=== PATIENT | male | born 1990 | race Caucasian/White ===

== ENCOUNTER 2020-03-16 18:00 | Emergency (ER) | payer OTHER, SELFPAY ==
[2020-03-16 19:12] VITALS: BP 155/67; PULSE 101; RESP 18; TEMP 38; O2SAT 96; BMI 50.8
--- NOTE | 2020-03-16 19:25 | XR_ITS ---
EXAMINATION: XR CHEST CLINICAL INFORMATION: Cough COMPARISON: None TECHNIQUE: Frontal portable view of the chest was obtained. 7:30 PM. Projection is apical lordotic. FINDINGS: No significant abnormality is noted involving the heart, lungs, mediastinum, bony thorax or soft tissues. XR/XR chest 1V IMPRESSION: Unremarkable examination.
--- NOTE | 2020-03-16 20:06 | ED_ITS ---
HPI - URI/Sore Throat General Chief Complaint: Upper Respiratory Symptoms Stated Complaint: sob,cough Time Seen by Provider: 03/16/20 19:25 Source: patient Mode of arrival: ambulatory Limitations: no limitations History of Present Illness HPI Narrative: Patient presents to ED for coughing, wheezing, body aches, and night sweats since yesterday. Patient states no one else at home having similar symptoms. Patient states mild shortness of breath with cough. Related Data Previous Rx's Medication Instructions Recorded albuterol sulfate 2 puff INHALATION Q6H PRN #18 g 03/16/20 ibuprofen 400 mg PO Q6H PRN #28 tab 03/16/20 prednisone 40 mg PO DAILY #10 tab 03/16/20 Allergies Allergy/AdvReac Type Severity Reaction Status Date / Time shrimp [SHRIMP] Allergy Severe THROAT Unverified 01/27/20 15:56 SWELLING, RASH Review of Systems Constitutional: Constitutional: Reports as per HPI, Reports no additional constitutional complaints, Reports body ache(s), Reports chills and Reports fatigue Eyes: Eyes: Reports as per HPI and Reports no additional eye complaints ENT: Reports system reviewed and no additional complaints, except as documented and Reports as per HPI Cardiovascular: Cardiovascular: Reports as per HPI, Reports no additional cardiovascular complaints, Denies chest pain, Denies chest pain at rest, Denies chest pain with activity, Denies dyspnea, Denies dyspnea on exertion, Denies orthopnea and Denies paroxysmal nocturnal dyspnea Respiratory: Respiratory: Reports cough, Denies dyspnea, Denies dyspnea on exertion and Reports wheezing Gastrointestinal: Gastrointestinal: Reports as per HPI, Reports no additional gastrointestinal complaints, Denies abdominal pain, Denies belching and Denies melena Musculoskeletal: Musculoskeletal: Reports no additional musculoskeletal complaints and Reports as per HPI Neurologic: Reports system reviewed and no additional complaints, except as documented and Reports as per HPI Psychiatric: Psychiatric: Reports no additional psychiatric complaints and Reports as per HPI Endocrine: Endocrine: Reports fatigue Allergic/Immunologic: Allergic/Immunologic: Reports wheezing PMFSH Past Medical History Medical History (Updated 03/16/20 @ 20:14 by THOMAS Cisneros) Asthma Carpal tunnel syndrome Pinched nerve Social History Social History Advance Directives: No Physical Exam Vital Signs: Vital Signs: Last Vital Signs Temp 100.4 F 03/16/20 19:12 Pulse 101 H 03/16/20 19:12 Resp 18 03/16/20 19:12 BP 155/67 H 03/16/20 19:12 Pulse Ox 96 03/16/20 19:12 Body Mass Index 50.8 Const: General: cooperative, healthy appearing, comfortable, no acute distress, well developed, alert and awake Orientation/consciousness: patient oriented x3 HENMT: Head: Yes normal to inspection and Yes No palpable skull fracture present Eyes: General: appearance normal, both eyes and all related structures Visual Law: normal visual law by confrontation Neck: Neck: Yes full ROM, Yes no lymphadenopathy, Yes no meningeal signs and Yes trachea midline Chest: Chest palpation & inspection: normal inspection of the chest, normal palpation of entire chest wall and no localized rib tenderness Resp: Effort & Inspection: normal respiratory effort, able to speak in complete sentences, normal respiratory pattern, no audible wheezes, no cough, no grunting, not labored, no nasal flaring, no paradoxical thoraco-abdom movements and no pursed lip breathing Auscultation: wheezes ( Mild) expiratory wheezes Cardio: Jugular venous distension: no JVD Heart sounds: S1 normal heart sound present and S2 normal heart sound present GI: Inspection: Yes normal to inspection and No abdominal wall ecchymosis Palpation (GI): Soft to palpation, not firm, nontender, no guarding and not rigid : General: No CVA tenderness and Yes no CVA tenderness Back/Spine/Pelvis: Back: no CVA tenderness, No CVA tenderness and No back tenderness Skin: General skin exam: no rashes or lesions noted Neuro: General: patient oriented x3, gait normal, no meningeal signs and CN's II-XI intact bilaterally Cranial nerves: Yes CN's II-XII intact bilaterally Extrem: General: Yes normal to inspection and Yes full ROM Psych: Appearance: grossly normal, well kempt and not disheveled Course Course Course Narrative: history physical exam indicate viral syndrome. URI. Reevaluation(s) Reevaluation #1: Patient sent for chest x-ray and will be given Tylenol and oral prednisone. patient is swabbed for COVID-19 virus. Patient will be discharged with albuterol inhaler, prednisone, and motrin. patient is not toxic appearing. Time: 20:12 MDM - URI/Sore Throat MDM Narrative Medical decision making narrative: Viral syndrome. Mild asthma exacerbation Discharge Plan Discharge Clinical Impression: Upper respiratory infection, Asthma Patient Disposition: Home, Self-Care Instructions: Asthma (ED), Upper Respiratory Infection (ED) Additional Instructions: return to the ED for any chest pain, shortness of breath, weakness, intractable fever/chills, coughing up blood, swelling of lower extremities, calf pain, or any other concerning symptoms. recommend 14 days self-isolation if COVID test come back positive Prescriptions: New prednisone 20 mg tablet 40 mg PO DAILY Qty: 10 RF: 0 ibuprofen 400 mg tablet 400 mg PO Q6H PRN (Reason: pain) Qty: 28 RF: 0 albuterol sulfate 90 mcg/actuation HFA aerosol inhaler 2 puff inhalation Q6H PRN (Reason: asthma) Qty: 18 RF: 0 Referrals: Laura Tinajero MD [Primary Care Provider] - 2 days ( viral syndrome. COVID testing pending) Stand Alone Forms: Work/School Release Interventions: ED Discharge Assessment Last Done: 03/16/20 20:45 Discharge Date/Time: 03/16/20 20:48 Print Language: Norwegian
[2020-03-16] MEDS: Acetaminophen 325 MG TABLET 650 MG PO (20:29)
[2020-03-16] MEDS: predniSONE 20 MG TABLET 60 MG PO (20:30)
== END 2020-03-16 20:48 | disposition home or self-care (01) ==
PROVIDERS: Physician Assistant; Emergency Provider Internal Medicine; PCP Internal Medicine
DX: J06.9 Acute upper respiratory infection, unspecified (principal); R05 Cough; J45.909 Unspecified asthma, uncomplicated; Z20.828 Contact with and (suspected) exposure to other viral communicable diseases
CPT/HCPCS: 71045; 99283; U0003

== ENCOUNTER 2020-05-10 06:29 | Outpatient (REF) | payer OTHER, SELFPAY ==
[2020-05-10 08:08] LABS: TSH reflex Free T4 1.07 mIU/mL (0.32-4.0)
[2020-05-11 06:58] LABS: Triiodothyronine T3 Free 3.8 pg/mL (2.3-4.2)
== END 2020-05-10 06:30 | disposition home or self-care (01) ==
LOC: HO.LAB 06:29
PROVIDERS: Visit Provider Internal Medicine
DX: E05.90 Thyrotoxicosis, unspecified without thyrotoxic crisis or storm (principal); G56.02 Carpal tunnel syndrome, left upper limb; I10 Essential (primary) hypertension
CPT/HCPCS: 84443; 84481

== ENCOUNTER → 2020-06-14 08:41 | Outpatient (BNVA) | payer OTHER, SELFPAY | PROVIDERS: PCP Internal Medicine; Visit Provider Orthopaedic Surgery | DX: G56.02 Carpal tunnel syndrome, left upper limb (principal); G56.01 Carpal tunnel syndrome, right upper limb | CPT/HCPCS: 99202 ==

== ENCOUNTER 2020-06-29 04:23 | Emergency (ER) | payer OTHER, SELFPAY ==
[2020-06-29 04:34] VITALS: BP 108/71; PULSE 83; RESP 18; TEMP 36.5; O2SAT 99; BMI 49.2
--- NOTE | 2020-06-29 04:46 | PC.NURSE ---
Covid swab obtained and sent.
[2020-06-29 05:01] LABS: COVID-19 Test Positive (Negative)
--- NOTE | 2020-06-29 06:37 | ED_ITS ---
HPI - URI/Sore Throat General Chief Complaint: Upper Respiratory Symptoms Stated Complaint: Covid Symptoms Time Seen by Provider: 06/29/20 06:37 Source: patient Mode of arrival: ambulatory Limitations: no limitations History of Present Illness MD elicited complaint: cough, sore throat and rhinorrhea Pertinent past history: asthma Onset (ago): day(s) (2) Consistency: constant Severity: mild Description of mucous: clear Able to tolerate fluids by mouth: Yes Exacerbating factors: nothing Relieving factors: nothing Associated symptoms: chills, myalgias, headache, sore throat and cough Treatments prior to arrival: none Related Data Previous Rx's Medication Instructions Recorded albuterol sulfate 2 puff INHALATION Q6H PRN #18 g 03/16/20 ibuprofen 400 mg PO Q6H PRN #28 tab 03/16/20 prednisone 40 mg PO DAILY #10 tab 03/16/20 Allergies Allergy/AdvReac Type Severity Reaction Status Date / Time shrimp [SHRIMP] Allergy Severe THROAT Verified 06/29/20 04:40 SWELLING, RASH Review of Systems Review of Systems: Constitutional : no Fever, positive Chills, positive fatigue, positive Malaise ENT/Mouth : positive sore throat, positive runny nose Eyes: No Discharge Cardiovascular : No Chest Pain, No SOB Respiratory : pos Cough, No Sputum Gastrointestinal : No Nausea, No Vomiting, No Diarrhea Genitourinary : No Dysuria, No Urinary Frequency Musculoskeletal : positive Myalgia Skin : No rash Neuro : No Headache PMFSH Past Medical History Attestation statement: The following information was validated with the patient. Medical History Asthma Bronchitis Carpal tunnel syndrome Hypertension Pinched nerve Family History Family History (Updated 06/14/20 @ 08:51 by JAMAL Garcia) Mother No problems noted. Father No problems noted. 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 Oriented X3. No acute distress. Eyes: Pupils equal, round and reactive to light. ENT: Pharynx normal. Neck: Normal inspection. Neck supple. CVS: Normal heart rate and rhythm. Pulses normal. Respiratory: No respiratory distress. Breath sounds normal. Abdomen: Soft and nontender. Skin: Skin warm and dry. Normal skin color. Normal skin turgor. Extremities: No lower extremity edema. No calf ttp Neuro: Oriented X 3. No motor deficit. No sensory deficit. MDM - URI/Sore Throat MDM Narrative Medical decision making narrative: 29 yo male no hypoxia, clear lungs, here with viral syndrome, tolerating PO + COVID Lab Data Labs: Lab Results 06/29/20 Range/Units 04:39 COVID-19 ([facility]) Positive A (Negative) COVID-19 Clin Com See Note Discharge Plan Discharge Clinical Impression: COVID-19 Patient Disposition: Home, Self-Care Instructions: COVID-19 (Coronavirus Disease 2019) (ED) Additional Instructions: return to ED for any worsening symptoms or concerns Prescriptions: No Action prednisone 20 mg tablet 40 mg PO DAILY Qty: 10 RF: 0 ibuprofen 400 mg tablet 400 mg PO Q6H PRN (Reason: pain) Qty: 28 RF: 0 albuterol sulfate 90 mcg/actuation HFA aerosol inhaler 2 puff inhalation Q6H PRN (Reason: asthma) Qty: 18 RF: 0
== END 2020-06-29 07:10 | disposition home or self-care (01) ==
PROVIDERS: Emergency Medicine Emergency Medical Services; Emergency Provider Emergency Medicine; PCP Internal Medicine
DX: U07.1 COVID-19 (principal); J45.909 Unspecified asthma, uncomplicated; I10 Essential (primary) hypertension
CPT/HCPCS: 36415; 87635; 99282; 99283

== ENCOUNTER 2020-11-16 16:01 | Emergency (ER) | payer OTHER, SELFPAY ==
[2020-11-16 16:08] VITALS: BP 118/76; PULSE 91; RESP 16; TEMP 37.1; O2SAT 96; BMI 51.6
[2020-11-16] MEDS: Fluorescein Sodium STRIP 1 STRIP EYE-LEFT (17:03)
[2020-11-16] MEDS: Tetracaine HCl/PF 0.5% Oph Sol 4 ML DROPS 1 DROP EYE-LEFT (17:03)
--- NOTE | 2020-11-16 17:30 | ED_ITS ---
HPI - Eye Problem General Chief complaint: Eye Problems Stated complaint: EYE PAIN Time Seen by Provider: 11/16/20 16:26 History of Present Illness HPI Narrative: patient complains of right eye irritation and foreign body sensation for 2 days after using a pressurized air hose at work that blew some material into his eye yesterday, discomfort is mild there is no photophobia no discharge no vision changes no vision loss Related Data Previous Rx's Medication Instructions Recorded albuterol sulfate 90 mcg/actuation 2 puff INHALATION Q6H PRN #18 g 03/16/20 aerosol inhaler ibuprofen 400 mg tablet 400 mg PO Q6H PRN #28 tab 03/16/20 prednisone 20 mg tablet 40 mg PO DAILY #10 tab 03/16/20 erythromycin 5 mg/gram (0.5 %) eye 0.5 inch OPHTHALMIC (EYE) TID 3 11/16/20 ointment Days #3.5 g Allergies Allergy/AdvReac Type Severity Reaction Status Date / Time shrimp [SHRIMP] Allergy Severe THROAT Verified 11/16/20 16:10 SWELLING, RASH Review of Systems Review of Systems: Positive for right eye foreign body sensation negatives are in no fever no chills no headache no vision loss no blurriness no discharge no photophobia no skin rashes Yes all other systems are reviewed and are negative [facility] Past Medical History Source: nursing notes reviewed Medical History Asthma Bronchitis Carpal tunnel syndrome Hypertension Pinched nerve Family History Family History (Updated 06/14/20 @ 08:51 by Jo Pablo Snow) Mother No problems noted. Father No problems noted. 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 Physical Exam Vital Signs: Vital Signs: Last Vital Signs Temp 98.7 F 11/16/20 16:08 Pulse 91 11/16/20 16:08 Resp 16 11/16/20 16:08 BP 118/76 11/16/20 16:08 Pulse Ox 96 11/16/20 16:08 Body Mass Index 51.6 General appearance no acute distress Head is normocephalic atraumatic Eye exam I rolled back the upper lid of the right eye as well as the lower lid and there was no foreign body visualized, pupils equal round reactive to light, extraocular motions are intact, no foreign body was visualized on the corneal surface, fluorescein dye did not show any uptake, visual acuity was 2025 bilaterally Respiratory no distress Extremities full range of motion x4 Skin no rash Course Course Course Narrative: I did not see any foreign body or corneal abrasion after staining, the eye was copiously irrigated in case there was a small foreign body that I missed, patient did feel improved but that may have been from the tetracaine and he is advised to follow with the eye doctor if symptoms are not improved in 1-2 days There was no deficit in visual acuity Discharge Plan Discharge Clinical Impression: Foreign body of right eye Patient Disposition: Home, Self-Care Additional Instructions: I did not see any foreign body in the eye but because you feel there is 1 there there is a chance it was something small that I messed We are applying erythromycin ointment for 3 days to prevent any infection Follow with [facility] tomorrow thigh does not feel back to normal as you may need a referral to an eye doctor for magnified exam Return to the ER any time for vision loss worsening eye pain discharge from my any worse condition or any concerns Prescriptions: New erythromycin 5 mg/gram (0.5 %) ointment 0.5 inch ophthalmic (eye) TID 3 Days Qty: 3.5 RF: 0 No Action prednisone 20 mg tablet 40 mg PO DAILY Qty: 10 RF: 0 ibuprofen 400 mg tablet 400 mg PO Q6H PRN (Reason: pain) Qty: 28 RF: 0 albuterol sulfate 90 mcg/actuation HFA aerosol inhaler 2 puff inhalation Q6H PRN (Reason: asthma) Qty: 18 RF: 0 Referrals: [facility] [Provider Group] - 2 days ( foreign body sensation in eye, eye was examined no abrasion no foreign body seen but patient is uncomfortable from foreign material blown into eye from air hose at work) Stand Alone Forms: Work/School Release Interventions: ED Discharge Assessment Last Done: 11/16/20 18:14 Discharge Date/Time: 11/16/20 18:22
== END 2020-11-16 18:22 | disposition home or self-care (01) ==
PROVIDERS: Emergency Provider Emergency Medicine Emergency Medical Services; PCP Internal Medicine
DX: T15.91XA Foreign body on external eye, part unspecified, right eye, initial encounter (principal); I10 Essential (primary) hypertension; J45.909 Unspecified asthma, uncomplicated; Z79.899 Other long term (current) drug therapy
CPT/HCPCS: 99283; 99284

== ENCOUNTER 2021-02-17 03:26 | Emergency (ER) | payer OTHER, SELFPAY ==
[2021-02-17 04:39] VITALS: BP 126/84; PULSE 88; RESP 16; TEMP 36.7; O2SAT 98; BMI 53.2
--- NOTE | 2021-02-17 05:23 | ED.BACK ---
HPI - Back Pain/Injury General Chief Complaint: Back Pain/Injury Stated Complaint: Back pain Time Seen by Provider: 02/17/21 05:17 Source: patient Mode of arrival: ambulatory Limitations: no limitations History of Present Illness HPI Narrative: Patient comes emergency room complaining of chronic back pain. Patient states he has had upper and lower back pain for approximately 2-3 years. Patient has had physical therapy, has gone to the chiropractor, denies any urinary/fecal incontinence/retention. Patient states every once in a while his pain flares up. Patient states his job is physical. Patient denies fever chills, denies IV drug use Related Data Previous Rx's Medication Instructions Recorded albuterol sulfate 90 mcg/actuation 2 puff INHALATION Q6H PRN #18 g 03/16/20 aerosol inhaler ibuprofen 400 mg tablet 400 mg PO Q6H PRN #28 tab 03/16/20 prednisone 20 mg tablet 40 mg PO DAILY #10 tab 03/16/20 erythromycin 5 mg/gram (0.5 %) eye 0.5 inch OPHTHALMIC (EYE) TID 3 11/16/20 ointment Days #3.5 g cyclobenzaprine 10 mg tablet 10 mg PO BEDTIME PRN #10 tab 02/17/21 Allergies Allergy/AdvReac Type Severity Reaction Status Date / Time shrimp [SHRIMP] Allergy Severe THROAT Verified 11/16/20 16:10 SWELLING, RASH Review of Systems Review of Systems: Constitutional : No Weight loss, No Fever, No Chills, No Night Sweats, No Fatigue, No Malaise ENT/Mouth : No Hearing loss, No Ear Pain, No Nasal Congestion, No Sinus Pain, No Hoarseness, No sore throat, No Rhinorrhea, No Swallowing Difficulty Eyes: No Eye Pain, No Swelling, No Redness, No Foreign Body, No Discharge, No Vision Changes Cardiovascular : No Chest Pain, No SOB, No Dyspnea on Exertion, No Orthopnea, No Edema, No Palpitations Respiratory : No Cough, No Sputum, No Wheezing, No Smoke Exposure, No Dyspnea Gastrointestinal : No Nausea, No Vomiting, No Diarrhea, No Constipation, No abdominal Pain, No Hematochezia, No Melena Genitourinary : no irregular bleeding, No Dysuria, No Urinary Frequency, No Hematuria, No Urinary Incontinence, No Urgency, No Flank Pain, No Urinary Flow Changes, No Hesitancy Musculoskeletal : Patient complaining of chronic back pain, upper back pain and lower back pain, no radiation. No Myalgias, No Joint Swelling Skin : No Skin Lesions, No rash Neuro : No Weakness, No Numbness, No Paresthesias, No Loss of Consciousness, No Dizziness, No Headache Psych : No Anxiety/Panic, No Depression, No SI/HI/AH/VH, No Social Issues, Heme/Lymph: No Bruising, No Bleeding,No Lymphadenopathy Endocrine : No Polyuria, No Polydipsia, No Temperature Intolerance [facility] Past Medical History Medical History Asthma Bronchitis Carpal tunnel syndrome Hypertension Pinched nerve Family History Family History (Updated 06/14/20 @ 08:51 by JAMAL Garcia) Mother No problems noted. Father No problems noted. 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 Oriented X3. No acute distress. Eyes: Pupils equal, round and reactive to light. ENT: Pharynx normal. Neck: Normal inspection. Neck supple. No lymph nodes noted. No crepitus CVS: Normal heart rate and rhythm. Pulses normal. Normal S1 and S2 Respiratory: No respiratory distress. Breath sounds normal. No Wheezing. No rales Abdomen: Soft and nontender. No rigidity. No distention. Back: Mild discomfort to palpation over the paraspinal muscles, cervical spine normal range of motion, pain to palpation over the suprascapular area. Negative straight leg raise test Skin: Skin warm and dry. Normal skin color. Normal skin turgor. Extremities: No lower extremity edema. No lower extremity edema. No Lacerations. No Rash Neuro: Oriented X 3. No motor deficit. No sensory deficit. Moving all extermities. No slurred speech. Course Course Course Narrative: Patient's pain is chronic, no acute findings, imaging not indicated at this time. Patient has no neurological deficits. Patient will follow-up with his primary care physician. Patient was given 1 dose of Toradol IM and Decadron. Patient states that Flexeril helps him sleep when he has back pain, requesting a prescription Discharge Plan Discharge Clinical Impression: Chronic back pain Patient Disposition: Home, Self-Care Instructions: Chronic Back Pain (DC) Additional Instructions: Please follow-up with your primary care physician tomorrow. If you have any worsening or new symptoms, please return to the emergency room or call 911 Prescriptions: New cyclobenzaprine 10 mg tablet 10 mg PO BEDTIME PRN (Reason: muscle spasm) Qty: 10 RF: 0 No Action erythromycin 5 mg/gram (0.5 %) ointment 0.5 inch ophthalmic (eye) TID 3 Days Qty: 3.5 RF: 0 prednisone 20 mg tablet 40 mg PO DAILY Qty: 10 RF: 0 ibuprofen 400 mg tablet 400 mg PO Q6H PRN (Reason: pain) Qty: 28 RF: 0 albuterol sulfate 90 mcg/actuation HFA aerosol inhaler 2 puff inhalation Q6H PRN (Reason: asthma) Qty: 18 RF: 0 Stand Alone Forms: Work/School Release
[2021-02-17] MEDS: dexAMETHasone sod phosphate 4 MG/ML VIAL 6 MG IM (05:32)
[2021-02-17] MEDS: Ketorolac Tromethamine 60 MG/2 ML VIAL IM (05:32)
== END 2021-02-17 05:40 | disposition home or self-care (01) ==
PROVIDERS: Emergency Provider Emergency Medicine; PCP Internal Medicine
DX: M54.50 Low back pain, unspecified (principal); Z79.899 Other long term (current) drug therapy
CPT/HCPCS: 96372; 99283; 99284; J1100; J1885

== ENCOUNTER 2021-09-17 15:24 | Outpatient (REF) | payer OTHER, SELFPAY ==
[2021-09-17 15:40] LABS: MANUAL DIFF FLAG NO
[2021-09-17 16:15] LABS: Basophils Absolute Auto 0.1 X10*3/uL (0.0-0.2); Basophils Percent Auto 0.6 % (0-2); Eosinophils Absolute Auto 0.3 X10*3/uL (0.0-0.4); Eosinophils Percent Auto 2.8 % (0-4); Hematocrit 44.2 % (42.0-52.0); Hemoglobin 14.7 g/dl (14.0-18.0); Imm Gran Abs Auto 0.06 X10*3/uL (0.00-0.03); Imm Gran Pct Auto 0.7 % (0.0-0.4); Lymphocytes Percent Auto 22.2 % (20-40); Mean Corpuscular HGB Conc 33.3 g/dl (31.0-36.0); Mean Corpuscular Volume 81.3 fL (80.0-98.0); Mean Platelet Volume 11.2 fL (9.4-12.4); Monocytes Absolute Auto 0.6 X10*3/uL (0.1-1.2); Monocytes Percent Auto 6.4 % (2-11); Neutrophils Percent Auto 67.3 % (45-73); Platelet Count 253 X10*3/uL (160-400); Red Blood Count 5.44 X10*6/uL (4.60-5.80); Red Cell Distribution Width 13.3 % (11.0-16.0); White Blood Count 8.9 X10*3/uL (4.8-10.8)
[2021-09-17 16:22] LABS: Estimated Average Glucose 114 mg/dL; Hemoglobin A1c % 5.6 %
[2021-09-17 16:32] LABS: Alanine Aminotransferase 26 U/L (0-40); Albumin Level 4.1 g/dL (3.5-5.0); Alkaline Phosphatase 70 U/L (39-117); Anion Gap 11 (12-20); Aspartate Amino Transferase 18 U/L (5-37); Bilirubin Total 0.4 mg/dL (0.0-1.0); Blood Urea Nitrogen 22 mg/dL (9-16); Calcium 9.1 mg/dL (8.4-10.2); Carbon Dioxide 25 mmol/L (22-29); Chloride 106 mmol/L (96-108); Cholesterol 163 mg/dL; Estimated Glomerular Filt Rate > 60; Glucose Random 106 mg/dL (60-115); HDL Cholesterol 41 mg/dL; LDL Cholesterol Calculated 97 mg/dl; Potassium 4.2 mmol/L (3.3-5.1); Sodium 138 mmol/L (135-145); Total Protein 6.9 g/dL (6.5-8.0); Triglycerides 127 mg/dL
[2021-09-18 22:17] LABS: Triiodothyronine T3 Free 3.2 pg/mL (2.3-4.2)
== END 2021-09-17 15:25 | disposition home or self-care (01) ==
LOC: HO.LAB 15:24
PROVIDERS: PCP Internal Medicine; Visit Provider Internal Medicine
DX: Z00.01 Encounter for general adult medical examination with abnormal findings (principal); E05.90 Thyrotoxicosis, unspecified without thyrotoxic crisis or storm; E66.01 Morbid (severe) obesity due to excess calories; I10 Essential (primary) hypertension; M54.50 Low back pain, unspecified; R12 Heartburn
CPT/HCPCS: 36415; 80053; 80061; 83036; 84443; 84481; 85025

== ENCOUNTER 2022-08-29 14:32 | Outpatient (REF) | payer OTHER, SELFPAY ==
[2022-08-29 14:47] LABS: MANUAL DIFF FLAG NO
[2022-08-29 14:58] LABS: Basophils Percent Auto 0.6 % (0-2); Eosinophils Absolute Auto 0.2 X10*3/uL (0.0-0.4); Eosinophils Percent Auto 3.5 % (0-4); Hematocrit 47.4 % (42.0-52.0); Hemoglobin 15.9 g/dl (14.0-18.0); Imm Gran Abs Auto 0.01 X10*3/uL (0.00-0.03); Imm Gran Pct Auto 0.1 % (0.0-0.4); Lymphocytes Absolute Auto 2.1 X10*3/uL (1.2-4.9); Lymphocytes Percent Auto 31.1 % (20-40); Mean Corpuscular HGB Conc 33.5 g/dl (31.0-36.0); Mean Corpuscular Hemoglobin 26.9 pg (27.0-33.0); Mean Corpuscular Volume 80.2 fL (80.0-98.0); Mean Platelet Volume 11.3 fL (9.4-12.4); Monocytes Absolute Auto 0.5 X10*3/uL (0.1-1.2); Monocytes Percent Auto 6.6 % (2-11); Neutrophils Absolute Auto 3.9 x10*3/uL (2.0-8.3); Neutrophils Percent Auto 58.1 % (45-73); Platelet Count 224 X10*3/uL (160-400); Red Blood Count 5.91 X10*6/uL (4.60-5.80); Red Cell Distribution Width 13.1 % (11.0-16.0); White Blood Count 6.8 X10*3/uL (4.8-10.8)
[2022-08-29 15:36] LABS: Alanine Aminotransferase 50 U/L (0-40); Albumin Level 4.5 g/dL (3.5-5.0); Alkaline Phosphatase 81 U/L (39-117); Anion Gap 14 (12-20); Aspartate Amino Transferase 32 U/L (5-37); Bilirubin Total 0.6 mg/dL (0.0-1.0); Blood Urea Nitrogen 21 mg/dL (9-16); Calcium 9.3 mg/dL (8.4-10.2); Carbon Dioxide 22 mmol/L (22-29); Chloride 108 mmol/L (96-108); Estimated Glomerular Filt Rate > 60; Glucose Random 89 mg/dL (60-115); Sodium 140 mmol/L (135-145)
[2022-08-29 15:50] LABS: Free T4 (Free Thyroxine) 0.99 ng/dL (0.71-1.85); Thyroid Stimulating Hormone 0.66 uIU/mL (0.32-4.0)
[2022-08-31 07:14] LABS: Triiodothyronine T3 Free 3.8 pg/mL (2.3-4.2)
== END 2022-08-29 14:33 | disposition home or self-care (01) ==
LOC: HO.LAB 14:32
PROVIDERS: PCP Internal Medicine; Visit Provider Internal Medicine
DX: E05.90 Thyrotoxicosis, unspecified without thyrotoxic crisis or storm (principal); I10 Essential (primary) hypertension; J45.20 Mild intermittent asthma, uncomplicated; R74.01 Elevation of levels of liver transaminase levels
CPT/HCPCS: 36415; 80053; 84439; 84443; 84481; 85025

== ENCOUNTER → 2023-03-12 10:02 | Outpatient (BNVA) | payer SELFPAY | PROVIDERS: PCP Internal Medicine; Visit Provider Physician Assistant ==

== ENCOUNTER 2023-10-08 14:01 | Outpatient (REF) | payer OTHER, SELFPAY ==
[2023-10-08 15:23] LABS: Alanine Aminotransferase 37 U/L (0-40); Alkaline Phosphatase 61 U/L (39-117); Anion Gap 12 (12-20); Aspartate Amino Transferase 32 U/L (5-37); Bilirubin Total 0.6 mg/dL (0.0-1.0); Blood Urea Nitrogen 20 mg/dL (9-16); Calcium 9.4 mg/dL (8.4-10.2); Carbon Dioxide 23 mmol/L (22-29); Chloride 107 mmol/L (96-108); Cholesterol 181 mg/dL (<200); Estimated Glomerular Filt Rate > 60; Glucose Random 104 mg/dL (60-115); HDL Cholesterol 54 mg/dL (>40); LDL Cholesterol Calculated 98 mg/dL (<100); Potassium 4.2 mmol/L (3.3-5.1); Sodium 138 mmol/L (135-145); Total Protein 7.4 g/dL (6.5-8.0); Triglycerides 145 mg/dL (<150)
== END 2023-10-08 14:02 | disposition home or self-care (01) ==
LOC: HO.LAB 14:01
PROVIDERS: PCP Internal Medicine; Visit Provider Internal Medicine
DX: G47.33 Obstructive sleep apnea (adult) (pediatric) (principal); I10 Essential (primary) hypertension; J45.909 Unspecified asthma, uncomplicated; R74.01 Elevation of levels of liver transaminase levels
CPT/HCPCS: 36415; 80053; 80061

== ENCOUNTER 2024-01-05 11:52 | Outpatient (REF) | payer OTHER, SELFPAY ==
[2024-01-05 13:36] LABS: Amphetamine Screen Urine Not Detected (Not Detect); Barbiturates, Urine Not Detected (Not Detect); Benzodiazepines Screen Urine Not Detected (Not Detect); Buprenorphine Scr Not Detected (Not Detect); Cannabinoid Screen Urine Not Detected (Not Detect); Cocaine Screen Urine Not Detected (Not Detect); Fentanyl, urine Not Detected (Not Detect); Methadone Screen, Urine Not Detected (Not Detect); Opiate Screen Urine Not Detected (Not Detect); Oxycodone Screen Urine Not Detected (Not Detect); Phencyclidine Screen Urine Not Detected (Not Detect)
== END 2024-01-05 11:53 | disposition home or self-care (01) ==
LOC: HO.LAB 11:52
PROVIDERS: PCP Internal Medicine; Visit Provider Internal Medicine
DX: Z00.00 Encounter for general adult medical examination without abnormal findings (principal)
CPT/HCPCS: 80307